=== PATIENT | female | born 1945 | race Caucasian/White ===

== ENCOUNTER 2016-11-29 08:56 | Day surgery (SDC) | payer MEDICARE, BC ==
[2016-11-29] MEDS ORDERED: PROPOFOL 500 MG/50 ML EMU IV ONE (09:15)
[2016-11-29] MEDS ORDERED: LIDOCAINE HCL 1% MPF SOL ONE (09:15)
[2016-11-29 11:45] VITALS: O2SAT 97
[2016-11-29 12:04] VITALS: PULSE 60; RESP 20; TEMP 97.8
[2016-11-29 12:16] VITALS: BP 138/74
== END 2016-11-29 12:25 | disposition home or self-care (01) | DRG 951 ==
LOC: SURG 08:56
PROVIDERS: ATTEND Surgery
DX: Z12.11 Encounter for screening for malignant neoplasm of colon (principal)
CPT/HCPCS: G0121; J2001; J2704